=== PATIENT | female | born 1990 | race American Indian/Alaskan Native ===

== ENCOUNTER 2017-11-22 15:15 | Emergency (ER) | payer BC ==
[2017-11-22 15:28] VITALS: BP 147/81
[2017-11-22] MEDS ORDERED: FUL-GLO OP ONE (16:55)
[2017-11-22] MEDS ORDERED: TETRACAINE 0.5% OU PRN (16:55)
--- NOTE | 2017-11-22 16:58 | Emergency Department Report ---
Eye Injury/Foreign Body - HPI Duration: Today Eye Location: Right Severity: Mild Eye Symptoms: Eye Pain: Yes, Blurred Vision: No, Eye Redness: Yes, Grinding/ Hammering Metal: No, Used Eye Protection: No, Contact Lens Use: No, Recalls Injury: No, Photophobia: No Other History: This is a 27-year-old female nontoxic, well nourished in appearance, no acute signs of distress presents to the ED with c/o of right eye redness and pain. Patient stated that she has hard contacts in to the right eye and stated she forgot her "contact lens plunger removal" at home and she is out of town. Patient denies any eye trauma. Patient denies any visual changes, fever , chills, headache, nausea vomiting, chest pain or shortness of breathe. Patient denies any allergies or PMH. ED Review of Systems ROS: Stated complaint: HARD LENSE CONTACT REMOVAL IN RIGHT EYE Other details as noted in HPI Constitutional: denies: chills, fever Eyes: eye pain. denies: eye discharge, vision change ENT: denies: ear pain, throat pain Respiratory: denies: cough, shortness of breath, wheezing Cardiovascular: denies: chest pain, palpitations Endocrine: no symptoms reported Gastrointestinal: denies: abdominal pain, nausea, diarrhea Genitourinary: denies: urgency, dysuria, discharge Musculoskeletal: denies: back pain, joint swelling, arthralgia Skin: denies: rash, lesions Neurological: denies: headache, weakness, paresthesias Psychiatric: denies: anxiety, depression Hematological/Lymphatic: denies: easy bleeding, easy bruising ED Past Medical Hx - Past Medical History Previous Medical History?: No - Surgical History Past Surgical History?: No - Social History Smoking Status: Never Smoker - Medications Home Medications: Home Medications Medication Instructions Recorded Confirmed Last Taken Type Ciprofloxacin 0.3% (Nf) 2 drops OD TID 7 Days #1 drops 11/22/17 Unknown Rx [Ciprofloxacin OPTH] Eye Injury Exam - Exam General: Vital signs noted. No distress. Alert and acting appropriately. GENERAL: The patient is a well-developed, well-nourished in no apparent distress. Patient is alert and acting appropriately for age. Alert and oriented 3, no apparent distress, normal gait, atraumatic. HEENT: Head is normocephalic and atraumatic. PERRL, Extraocular muscles are intact. Pupils are equal, round, and reactive to light and accommodation. Positive contact in place of right eye. No crusting. Nares appeared normal. Mouth is well hydrated and without lesions. Mucous membranes are moist. Posterior pharynx clear of any exudate or lesions. Mouth is well hydrated and without lesions. Tonsils not erythematous or swollen. Uvula midline. Tongue elevated. Mucous members are moist. Posterior pharynx clear, no exudate or lesions. Patent airways. NECK: Supple. No carotid bruits. No lymphadenopathy or thyromegaly.nontender. No meningitic signs are noted. LUNGS: Clear to auscultation. Non labor breathing. No intercostal retractions. Symmetrical with respiration, no wheezing, no rales, or crackles. HEART: Regular rate and rhythm without murmur, rubs or gallops. No reproducible. S1, S2 present, regular rate and rhythm without murmur, no rubs, no gallops. ABDOMEN: Soft, nontender, and nondistended. Positive bowel sounds. No hepatosplenomegaly was noted. No guarding or rebound tenderness, negative epigastric bruit. Negative psoas sign, negative delong sign, negative McBurneys sign EXTREMITIES: Without any cyanosis, clubbing, rash, lesions or edema. Peripheral pulses intact. Capillary refill less than 2 seconds. Full range of motion bilaterally. NEUROLOGIC: Cranial nerves II through XII are grossly intact. Alert and oriented x 3. Normal gait. Symmetrical strength and sensation. Reflexes 2+ throughout. Cerebellar testing normal. GCS score of 15. PSYCHIATRIC: Normal affect with no suicidal or homicidal ideations. Under Loza lamp, I used fluorescein and tetracaine to examine cornea for corneal abrasion or foreign body, negative for coronary abrasion or foreign body noted upon exam. ED Course Vital Signs 11/22/17 15:25 Temperature 98.5 F Pulse Rate 78 Respiratory 16 Rate Blood Pressure 147/81 O2 Sat by Pulse 99 Oximetry - Reevaluation(s) Reevaluation #1: 11/22/17 16:56 Patient is speaking in full sentences with no signs of distress noted. - Eye Procedure Alcaine Drops Administered: Yes Eye FB Removal: other (suction) Eye Irrigated w/ Saline (ccs): 40 Progress: I used a wall suction and applied it to the posterior portion of the contact lens and removed it. Patient tolerated well with no signs of distress. ED Medical Decision Making - Medical Decision Making This is a 27-year-old female that presents with right eye contact lens removal. Patient is stable and was examined by me. The contact lens has been removed with suction. Patient tolerated well. Patient is discharged with Ciprofloxin opth empirically. Loza lamp obtained with no corneal abrasion. Patient was instructed to Follow-up with a primary care doctor in 3-5 days or if symptoms worsen and continue return to emergency room as soon as possible. At time of discharge, the patient does not seem toxic or ill in appearance. No acute signs of distress noted. Patient agrees to discharge treatment plan of care. No further questions noted by the patient. Critical care attestation.: If time is entered above; I have spent that time in minutes in the direct care of this critically ill patient, excluding procedure time. ED Disposition Clinical Impression: Foreign body of right eye Qualifiers: Encounter type: initial encounter Qualified Code(s): T15.91XA - Foreign body on external eye, part unspecified, right eye, initial encounter Disposition: DC-01 TO HOME OR SELFCARE Is pt being admited?: No Does the pt Need Aspirin: No Condition: Stable Instructions: Eye Foreign Body (ED), Ciprofloxacin (Into the eye) Additional Instructions: Follow-up with a primary care doctor in 3-5 days or if symptoms worsen and continue return to emergency room as soon as possible. Prescriptions: Ciprofloxacin 0.3% (Nf) [Ciprofloxacin OPTH] 2 drops OD TID 7 Days #1 drops Referrals: PRIMARY CARE, [Primary Care Provider] - 3-5 Days MILLIE PARKER MD [Staff Physician] - 3-5 Days CARROLL BORJA MD [Staff Physician] - 3-5 Days [facility] [Outside] - 3-5 Days [facility] [Outside] - 3-5 Days Forms: Work/School Release Form(ED)
== END 2017-11-22 17:12 | disposition home or self-care (01) ==
LOC: ED 15:15
DX: T15.91XA Foreign body on external eye, part unspecified, right eye, initial encounter (principal); X58.XXXA Exposure to other specified factors, initial encounter; Y93.89 Activity, other specified; Y92.89 Other specified places as the place of occurrence of the external cause; Y99.8 Other external cause status